=== PATIENT | male | born 1965 | race Asian ===

== ENCOUNTER 2021-12-21 06:42 | Day surgery (SDC) | payer MEDICAID, SELFPAY ==
[2021-12-21] MEDS ORDERED: MEPERIDINE 100 MG INJ. 100 MG/ML VIAL ONE (11:24)
[2021-12-21] MEDS ORDERED: MIDAZOLAM HCL 5 MG/5 ML VIAL ONE (11:24)
[2021-12-21 19:19] VITALS: BP_SYST 118
== END 2021-12-21 12:45 | disposition home or self-care (01) ==
LOC: EDSEX 06:42 → SDS 06:42 → SMU 06:45 → SDS 12:45
PROVIDERS: ATTEND Internal Medicine Gastroenterology
DX: Z12.11 Encounter for screening for malignant neoplasm of colon (principal); K63.5 Polyp of colon; K57.30 Diverticulosis of large intestine without perforation or abscess without bleeding; K64.9 Unspecified hemorrhoids; Z79.899 Other long term (current) drug therapy; Z20.822 Contact with and (suspected) exposure to COVID-19
CPT/HCPCS: 36415; 45385; 87426; 88305; 99152; G0378; J2175; J2250